=== PATIENT | female | born 1960 | race Caucasian/White ===

== ENCOUNTER 2022-06-03 08:35 | Day surgery (SDC) | payer OTHER, SELFPAY ==
[2022-06-03] VITALS (7 sets, daily range): BP systolic 113–128; BP diastolic 68–80; PULSE 46–58; RESP 16–18; TEMP 36.6–37.8; O2SAT 95–100; BMI 20.9
[2022-06-03] MEDS: Lactated Ringers 1,000 ML 15 ML IV (09:31)
--- NOTE | 2022-06-03 10:30 | RAD_ITS ---
STUDY: X-RAY - LEFT WRIST REASON FOR EXAM: Female, 62 years old. Known fracture TECHNIQUE: 3 intraoperative view(s) of the wrist were obtained. COMPARISON: None. FINDINGS: 3 limited intraoperative C-arm films were performed as the patient has undergone open reduction internal fixation of the distal radial fracture with placement of a volar plate. Alignment at the fracture site is anatomic, no intraoperative complications noted. Follow-up recommended to assure complete osseous union RAD/Wrist 2 Views IMPRESSION: No intraoperative complications during open reduction internal fixation of a distal radial fracture Electronically Signed: Arnold Pettit MD at 13:06 EDT ,
[2022-06-03] MEDS: Cefazolin 2 GM in 0.9% Normal Saline 100 ML IV (10:47)
--- NOTE | 2022-06-03 13:10 | OP.PCM_ITS ---
Report of Operation Date of Procedure: 06/03/22 Description of Surgical Findings:: Preoperative diagnosis: Left distal radius malunion Postoperative diagnosis: Left distal radius malunion Procedure: Corrective osteotomy left distal radius with cancellous allograft bone grafting and internal fixation Surgeon: Ayush Steel DO Python Developer: Sophie Colin PA-C Anesthesia: General LMA with axillary block Anesthesiologist: Dr. John Complications: None Drains: None Estimated blood loss: 10 cc Urinary output: None recorded IV fluids: 800 cc crystalloid Specimens: None Surgical implants: Arthrex 3-hole narrow volar locking plate Surgical indications: This is a 62-year-old female who was followed in the outpatient setting for a left distal radius fracture in December 2021. She was managed nonoperatively initially with a cast and transition to a brace. Reduction of the wrist was lost and she had significant loss of radial height approximately 5 degrees dorsal angulation. I discussed operative invention at that time but patient wished to proceed with nonoperative management. She retur sydnie approximately 3 weeks ago with limited range of motion and deformity to her left wrist. X-rays confirmed a malunion of the left distal radius with significant loss of radial height and mild dorsal angulation. Patient was also mildly ulnar positive. We discussed continued nonoperative management versus operative intervention in form of corrective osteotomy of the left distal radius. The risks, benefits, alternatives to procedure reviewed with patient at length and she agreed to proceed with corrective osteotomy. The risks included but were not limited to bleeding, flexion, loss of life or limb, need for additional surgery, persistent pain, persistent deformity, posttraumatic arthritis, neurovascular injury, DVT or PE, risk of anesthesia. Patient expressed understanding and wished to proceed with surgery. Description of procedure: Patient was seen in preoperative holding area. He was identified by name, medical record number, date of . The operative extremity was marked with a surgical marker. We confirmed informed consent with the patient and all questions were answered to his satisfaction. An axillary block was placed in the PACU by anesthesia staff. At time of her procedure, patient was brought to the operative suite and positioned supine on a standard operating table. All bony prominences were well-padded. General anesthesia was administered. After adequate anesthesia, a well-padded pneumatic tourniquet was applied to the upper arm of the operative extremity. We then spun the bed 90 degrees. We prepped and draped the operative extremity in a normal, sterile orthopedic fashion. We then performed a timeout with all parties in attendance in agreement the side, site, and operation be performed. No concerns were voiced and we elected to proceed. 2 g Ancef was administered for antibiotic prophylaxis prior to the incision by anesthesia staff. I first exsanguinated the operative extremity with an Esmarch bandage. Tourniquet was inflated to 250 mmHg, which remained up for approximately 90 minutes. Esmarch was removed. I planned a standard FCR approach over the flexor carpi radialis tendon along the volar wrist. Skin was sharply incised with a 15 blade scalpel down to the level of the tendon sheath. The FCR tendon sheath was identified and split longitudinally in line with the incision. I then retracted the FCR tendon ulnarly, split the floor of the tendon sheath in line with the incision. The flexor pollicis longus muscle belly was then encountered and retracted ulnarly. The pronator quadratus was then encountered. A self-retaining retractor was placed deep. Performed an L-shaped tenotomy of the pronator quadratus and subperiosteally elevated it ulnarly. Examination of the volar surface of the radius demonstrated significant deformity consistent with outpatient x-rays. I selected a point to perform an osteotomy just proximal to the sigmoid notch. Osteotomy was made perpendicular to the long axis of the radius with a sagittal saw and completed with a osteotome. Dorsal periosteum was released with Littler scissors. I then utilized a lamina printed circuit boards router to regain radial height. I held this provisionally in place with a K wire through the radial styloid. I then packed the bony void created by the osteotomy and correction with allograft cancellous chips. I then selected a 3 hole volar locking plate narrow from [employer]. This was held in place provisionally with K wires. I then fixed the distal cluster to the distal fragment with a locking compression screw and subsequent the additional locking screws. I then utilized a bicortical cortex screw through the shaft portion of the plate to regain volar tilt in a kickstand technique. Fluoroscopic images demonstrated near anatomic reduction. Additional locking screws were placed in the shaft. I utilized fluoroscopic imaging to place 2 locking screws in the radial styloid. Final fluoroscopic images were obtained. Wound was copiously irrigated with normal saline solution. Tourniquet was deflated and hemostasis was achieved with bipolar cautery. The pronator quadratus was then laid across the plate. Dermis was reapproximated buried 3-0 Vicryl suture. Skin was finally reapproximated with 4-0 Monocryl in subcuticular fashion and skin glue. A well-padded short arm volar fiberglass splint was placed in slight extension. Patient was safely extubated in the office suite. She was transferred to her gurney and subsequently to PACU in stable condition. Need for skilled press assistant and feeder: Sophie Colin PA-C was critical to the outcome of the case. During the course of the procedure the physician press assistant and feeder played a vital role. Her intimate knowledge of my steps in the procedure aided in safe and expedient completion of the procedure. The PA played a vital role in positioning particularly in obtaining the appropriate positioning. The PA was also vital in the retraction of soft tissues during the exposure and protecting vital structures. The PA was also vital and obtaining fracture reduction and assisting with hardware placement. She also played a vital role in closure and splint application with my direct supervision. Post Operative Plan: Weightbearing: Nonweightbearing operative extremity Antibiotics: 2 g Ancef x 1 dose preoperatively DVT Prophylaxis: Aspirin 81 mg twice daily until follow-up in 2 weeks Garcia: None Dressing: Maintain splint, keep it clean dry and intact until follow-up X-Rays: 2 weeks postop in the office Pain Medication: Oxycodone prescription sent to her pharmacy, Tylenol and ibuprofen recommended. Follow-up: 2 weeks post-operatively with me in the office
--- NOTE | 2022-06-03 13:10 | PCM.DC ---
Discharge Instructions Follow Up Care Test Results: Test results from this visit will be discussed in further detail at your follow-up appointment, if applicable. Discharge Plan Admission Primary Reason for Your Visit: Left wrist surgery Attending Provider: Ayush Steel Primary Care Provider: Tova Messina NP Instructions Additional Instructions / Restrictions: Follow preprinted instructions from your surgeons office. Discharge Orders/Prescriptions Prescriptions: New oxycodone 5 mg tablet 5 mg PO Q6H PRN (Reason: pain) 7 Days Qty: 28 0RF ondansetron 4 mg tablet,disintegrating 4 mg PO Q8H PRN (Reason: nausea and vomiting) Qty: 14 0RF Continued meloxicam 7.5 mg Tablet 7.5 mg PO DAILY methotrexate sodium 2.5 mg Tablet 15 mg PO CARSON Label Comments: PT STATES DR STEEL AWARE SHE IS ON METHOTREXATE Referrals / Follow Up: Ayush Steel DO [Med Staff - Active Staff] - Within 2 Weeks Tova Messina NP, FERTILIZER APPLICATOR-C [Primary Care Provider] - Disposition Disposition (needs filled in before D/C Order can be placed): Home, Self Care
== END 2022-06-03 15:31 | disposition home or self-care (01) ==
LOC: SDC 08:39 → AC 08:40
PROVIDERS: PCP Nurse Practitioner Primary Care; Referring Provider Student in an Organized Health Care Education/Training Program; Visit Provider Student in an Organized Health Care Education/Training Program
PROC: (CPT 25405; principal; 2022-06-03 09:50)
DX: S52.532P Colles' fracture of left radius, subsequent encounter for closed fracture with malunion (principal); X58.XXXD Exposure to other specified factors, subsequent encounter; M60.9 Myositis, unspecified; F10.90 Alcohol use, unspecified, uncomplicated; Z79.899 Other long term (current) drug therapy
CPT/HCPCS: 25405; 01830; 64417; 73100; 76000; C1713; J7120